=== PATIENT | female | born 1985 | race Caucasian/White ===

== ENCOUNTER 2020-12-09 10:46 | Emergency (ER) | payer OTHER, SELFPAY ==
--- NOTE | ~2020-12-09 | XR_ITS ---
EXAMINATION: XR wrist RT min 3V INDICATION: Right wrist pain TECHNIQUE: Four views of the right wrist are obtained. COMPARISON: None available FINDINGS: Bone alignment is normal. There is no fracture. There is a round the soft tissues are unrem arkable. There is mild sclerosis of the lunate surrounding an area of central lucency. IMPRESSION: 1. Radiographic findings suggestive of Kienbock disease Reviewed, dictated and finalized at location A.
[2020-12-09 11:21] VITALS: BP 134/70; PULSE 63; RESP 20; TEMP 36.4; O2SAT 98
[2020-12-09 13:00] VITALS: BP 135/82; PULSE 60; RESP 19; O2SAT 99
--- NOTE | 2020-12-09 14:03 | ED.EXTPRO ---
HPI - Extremity Problem General Chief complaint: Extremity Problem,Nontraumatic Stated complaint: right wrist pain Time Seen by Provider: 12/09/20 12:51 Source: patient Mode of arrival: ambulatory Limitations: no limitations History of Present Illness HPI Narrative: This is a 35-year-old female that presents the emergency department for right wrist pain x1 week. No known injury or trauma. The pain is worse with movement and relieved with rest. She has taken anti-inflammatories with some relief. Also reports over the last couple of days she is started to have some tingling in the right third through fifth fingers. Denies fever, erythema, edema, decreased range of motion or numbness. Related Data Home Medications Medication Instructions Recorded Confirmed No Home Medications 12/09/20 12/09/20 Allergies Allergy/AdvReac Type Severity Reaction Status Date / Time No Known Allergies Allergy Unknown Unverified 12/09/20 11:56 Review of Systems Review of Systems: Narrative: CONSTITUTIONAL: Denies fever MUSCULOSKELETAL: Reports joint pain, and myalgia. NEUROLOGIC: Reports weakness. Denies numbness All systems reviewed & are unremarkable except as noted in HPI and below PMFSH Past Medical History Medical History (Updated 12/09/20 @ 15:00 by Keira Frey PA-C) No active medical problems Social History Social History (Updated 12/09/20 @ 14:06 by Keira Frey PA-C) Substance use: never Gender identity (if verbalized by the patient): Female Exam Narrative: Exam Narrative: GENERAL: Well-appearing, well-nourished, and in no acute distress. HEAD: Normocephalic, atraumatic. EYES: EOMI. EXTREMITIES: Normal range of motion. No edema, erythema or obvious deformity. Normal radial pulses SKIN: Warm, dry, no rash. NEURO: No focal deficits. Alert and oriented x3. PSYCH: Normal mood and affect Course Consultations Consultation #1: Spoke with Dr. Cerda about patient and workup. Patient will be need follow up with a specialist who treats Kienbock's. Recommends just an OTC brace in the meantime for comfort/support Date: 12/09/20 Time: 15:01 Vital Signs Vital signs: Vital Signs Temperature 97.6 F 12/09/20 11:21 Pulse Rate 63 12/09/20 11:21 Respiratory Rate 20 12/09/20 11:21 Blood Pressure 134/70 12/09/20 11:21 Pulse Oximetry 98 12/09/20 11:21 Temperature 97.6 F 12/09/20 11:21 Pulse Rate 60 12/09/20 13:00 Respiratory Rate 19 12/09/20 13:00 Blood Pressure 135/82 12/09/20 13:00 Pulse Oximetry 99 12/09/20 13:00 MDM - Extremity (Nontraumatic) MDM Narrative Medical decision making narrative: Patient presents to the emergency department for right wrist pain. No known injury or trauma. She is neurovascularly intact. Right wrist x-ray shows findings consistent with chronic back disease. Patient updated on case findings. Spoke with Dr. Cerda about patient and workup. Patient will be need follow up with a specialist who treats Kienbock's. Recommends just an OTC brace in the meantime for comfort/support. Patient will be given [facility] number to call for an appointment with hand surgeon. She was given warnings to return to the ER Imaging Data Radiologist's impression: ITS Impressions Wrist X-Ray 12/09/20 12:28 IMPRESSION: 1. 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 Ice to the area. Tylenol or ibuprofen as
[2020-12-09] MEDS: ACETAMINOPHEN 500 MG TABLET 1000 MG PO (14:27)
[2020-12-09 15:11] VITALS: BP 134/98; PULSE 65; RESP 15; O2SAT 100
--- NOTE | 2020-12-13 10:35 | PC.NURSE ---
Late entry Pts complains of RIGHT wrist pain.
== END 2020-12-09 15:14 | disposition home or self-care (01) ==
PROVIDERS: Emergency Provider Emergency Medicine
DX: M92.211 Osteochondrosis (juvenile) of carpal lunate [Kienbock], right hand (principal)
CPT/HCPCS: 73110; 99283; A9270

== ENCOUNTER 2023-02-26 16:37 | Emergency (ER) | payer OTHER, SELFPAY ==
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
[2023-02-26 16:37] VITALS: BP 120/80; PULSE 84; RESP 20; TEMP 37.1; O2SAT 97
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
[2023-02-26] MEDS: KETOROLAC (*BKC) 60 MG/2 ML VIAL IM (18:45)
[2023-02-26 18:48] VITALS: BP 136/76; PULSE 87; RESP 20; TEMP 37.2; O2SAT 97
== END 2023-02-26 19:00 | disposition home or self-care (01) ==
PROVIDERS: Emergency Provider Emergency Medicine
DX: S52.124A Nondisplaced fracture of head of right radius, initial encounter for closed fracture (principal); V09.20XA Pedestrian injured in traffic accident involving unspecified motor vehicles, initial encounter
CPT/HCPCS: 29105; 70450; 70486; 72125; 72220; 73080; 73562; 73590; 96372; 99284; A4565; J1885